=== PATIENT | male | born 1990 | race Caucasian/White ===

== ENCOUNTER 2018-04-05 01:45 | Emergency (ER) | payer OTHER, SELFPAY ==
[~2018-04-05] VITALS: Ht 185.4 cm; Wt 79.0 kg
[2018-04-05 01:50] VITALS: BP 145/96
[2018-04-05] MEDS ORDERED: IBUPROFEN 200 MG TABLET ONE (02:23)
[2018-04-05] MEDS ORDERED: IBUPROFEN 200 MG TABLET PO ONE (02:30)
== END 2018-04-05 02:59 | disposition home or self-care (01) ==
LOC: ED 02:50
DX: G89.11 Acute pain due to trauma (principal); M25.512 Pain in left shoulder; Y04.0XXA Assault by unarmed brawl or fight, initial encounter; Y99.8 Other external cause status; Y92.89 Other specified places as the place of occurrence of the external cause; Y93.89 Activity, other specified
CPT/HCPCS: 99284